=== PATIENT | female | born 1940 | race Caucasian/White ===

== ENCOUNTER 2018-07-30 13:43 | Inpatient (IN) | payer OTHER, MEDICAID ==
[2018-07-30] MEDS: SODIUM CHLORIDE 0.9% 1L BAG IV* (15:15)
[2018-07-30] MEDS: CEFEPIME 2GM/50 ML (PMX) 50 ML IVPB (15:16)
[2018-07-30] MEDS: ACETAMINOPHEN 500 MG TAB PO (15:16)
[2018-07-30 15:26] LABS: WHITE BLOOD COUNT 10.3 10^3/ul (4.8-10.8)
[2018-07-30 15:26] LABS: HEMOGLOBIN 13.2 g/dl (12.0-16.0); MEAN CORPUSCULAR HEMOGLOBIN 33.3 pg (29.0-33.0); MEAN CORPUSCULAR HGB CONC 33.8 g/dl (32.0-37.0); MEAN CORPUSCULAR VOLUME 98.5 fl (82.0-101.0); MEAN PLATELET VOLUME 10.6 fl (7.4-10.4); PLATELET COUNT 113 10^3/UL (140-415); RED BLOOD COUNT 3.96 10^6/ul (4.20-5.40); RED CELL DISTRIBUTION WIDTH 16.5 % (11.5-14.5)
[2018-07-30 15:38] LABS: POSITIVE DIFF @See below
[2018-07-30 15:39] LABS: ADD MAN DIFF? YES
[2018-07-30 15:42] LABS: INR 1.09; PROTIME 14.2 Sec (11.9-14.9); PT RATIO 1.1
[2018-07-30 15:46] LABS: ANION GAP 13 (8-16); BLOOD UREA NITROGEN 10 mg/dl (7-20); CALCIUM 8.9 mg/dl (8.4-10.2); CARBON DIOXIDE 22 mmol/L (21-31); CHLORIDE 104 mmol/L (97-110); CREATININE 0.69 mg/dl (0.44-1.00); GLUCOSE 130 mg/dl (70-220); POTASSIUM 3.8 mmol/L (3.5-5.1); SODIUM 135 mmol/L (135-144)
[2018-07-30 15:49] LABS: LACTIC ACID 2.9 mmol/L (0.5-2.0)
[2018-07-30 15:57] LABS: TROPONIN-I < 0.012 ng/ml (0.000-0.120)
[2018-07-30 16:27] LABS: ANISOCYTOSIS 1+ (0-0); BAND NEUTROPHILS #M 0.7 10^3/ul (0.0-0.6); BAND NEUTROPHILS % (M) 7 % (0-4); BASOPHIL #M 0.2 10^3/ul (0.0-0.0); BASOPHILS % (M) 2 % (0-2); GIANT THROMBO% (M) 5 % (0-0); LYMPHOCYTES #M 1.1 10^3/ul (0.8-2.9); LYMPHOCYTES % (M) 11 % (15-51); METAMYELOCYTES #M 0.1 10^3/ul (0.0-0.0); METAMYELOCYTES %M 1 % (0-0); MONOCYTE #M 0.5 10^3/ul (0.3-0.9); MONOCYTES % (M) 5 % (0-11); PLATELET ESTIMATE DECREASED; POIKILOCYTOSIS 1+ (0-0); POLYCHROMASIA 3+ (0-0); REACTIVE LYMPHOCYTES #M 0.3 10^3/ul (0.0-0.0); REACTIVE LYMPHOCYTES% (M) 3 % (0-0); SEG NEUT #M 7.4 10^3/ul (1.6-7.5); SEGMENTED NEUTROPHILS (M) % 71 % (39-77); SMUDGE%M 44 % (0-0)
[2018-07-30] MEDS: VANCOMYCIN 1 GM (PMX) 250 ML IVPB (16:33)
[2018-07-30] MEDS: KETOROLAC 15 MG INJ IV (17:05)
[2018-07-30 17:15] LABS: ADD UMIC YES; UR ASCORBIC ACID NEGATIVE (NEGATIVE); UR BILIRUBIN (Dip) NEGATIVE (NEGATIVE); UR BLOOD (Dip) NEGATIVE (NEGATIVE); UR CLARITY SLIGHTLY CLOUDY (CLEAR); UR COLOR YELLOW (YELLOW); UR GLUCOSE (Dip) NEGATIVE (NEGATIVE); UR KETONES (Dip) NEGATIVE (NEGATIVE); UR LEUKOCYTE ESTERASE (Dip) 2+ Leu/ul (NEGATIVE); UR NITRITE (Dip) POSITIVE (NEGATIVE); UR NONSQUAMOUS EPITHELIAL CELL 1 /HPF (NONE SEEN); UR RBC 2 /HPF (0-5); UR SPECIFIC GRAVITY (Dip) 1.013 (1.003-1.030); UR TOTAL PROTEIN (Dip) 1+ mg/dl (NEGATIVE); UR UROBILINOGEN (Dip) 1+ mg/dL (NEGATIVE); UR WBC 87 /HPF (0-5)
[2018-07-30] MEDS ORDERED: ONDANSETRON 4 MG INJ IV ×2 (18:00→19:30)
[2018-07-30] MEDS ORDERED: ACETAMINOPHEN 325 MG TAB PO (18:00)
[2018-07-30] MEDS ORDERED: GABAPENTIN 300 MG CAP PO (19:30)
[2018-07-30] MEDS ORDERED: NACL 0.9% 3 ML SYG IV (19:30)
[2018-07-30 20:14] LABS: LACTIC ACID 1.3 mmol/L (0.5-2.0)
[2018-07-30 22:12] LABS: LACTIC ACID 1.1 mmol/L (0.5-2.0)
[2018-07-31] MEDS: ACETAMINOPHEN 325 MG TAB PO ×3 (02:14→18:40)
[2018-07-31 05:12] LABS: ABNORMAL IP MESSAGE 1; HEMATOCRIT 32.8 % (37.0-47.0); HEMOGLOBIN 11.1 g/dl (12.0-16.0); MEAN CORPUSCULAR HEMOGLOBIN 32.7 pg (29.0-33.0); MEAN CORPUSCULAR HGB CONC 33.8 g/dl (32.0-37.0); MEAN CORPUSCULAR VOLUME 96.8 fl (82.0-101.0); MEAN PLATELET VOLUME 11.4 fl (7.4-10.4); PLATELET COUNT 92 10^3/UL (140-415); RED BLOOD COUNT 3.39 10^6/ul (4.20-5.40); RED CELL DISTRIBUTION WIDTH 16.5 % (11.5-14.5)
[2018-07-31 05:12] LABS: WHITE BLOOD COUNT 9.3 10^3/ul (4.8-10.8)
[2018-07-31 05:23] LABS: ALBUMIN 2.4 g/dl (3.3-4.9); ALBUMIN/GLOBULIN RATIO 0.75; ALKALINE PHOSPHATASE 174 IU/L (42-121); ANION GAP 9 (8-16); ASPARTATE AMINO TRANSFERASE 42 IU/L (15-46); BILIRUBIN,INDIRECT 0.3 mg/dl (0-1.1); BILIRUBIN,TOTAL 0.3 mg/dl (0.2-1.3); BLOOD UREA NITROGEN 8 mg/dl (7-20); CARBON DIOXIDE 21 mmol/L (21-31); CHLORIDE 111 mmol/L (97-110); CREATININE 0.59 mg/dl (0.44-1.00); GLUCOSE 104 mg/dl (70-220); MAGNESIUM 1.8 mg/dl (1.7-2.5); PHOSPHORUS 2.6 mg/dl (2.5-4.9); POTASSIUM 3.5 mmol/L (3.5-5.1); SODIUM 137 mmol/L (135-144); TOTAL PROTEIN 5.6 g/dl (6.1-8.1)
[2018-07-31 05:25] LABS: ADD MAN DIFF? YES; POSITIVE DIFF @See below
[2018-07-31] MEDS: PANTOPRAZOLE (EC) 40 MG TAB PO (05:51)
[2018-07-31] MEDS: LEVOTHYROXINE 50 MCG TAB PO (05:51)
[2018-07-31 07:21] LABS: ALANINE AMINOTRANSFERASE 38 IU/L (13-69)
[2018-07-31 07:28] LABS: ANISOCYTOSIS 2+ (0-0); BAND NEUTROPHILS #M 1.2 10^3/ul (0.0-0.6); BAND NEUTROPHILS % (M) 13 % (0-4); BASOPHILS % (M) 1 % (0-2); BURR CELLS 2+ (0-0); EOSINOPHILS % (M) 1 % (0-7); GIANT THROMBO% (M) 1 % (0-0); LYMPHOCYTES #M 0.7 10^3/ul (0.8-2.9); LYMPHOCYTES % (M) 8 % (15-51); MONOCYTE #M 1.3 10^3/ul (0.3-0.9); MONOCYTES % (M) 14 % (0-11); PLATELET ESTIMATE DECREASED; POIKILOCYTOSIS 2+ (0-0); POLYCHROMASIA 1+ (0-0); SEGMENTED NEUTROPHILS (M) % 63 % (39-77); SMUDGE%M 43 % (0-0); TARGET CELLS 1+ (0-0); TOXIC GRANULATION 1+ (0-0)
[2018-07-31] MEDS: LEVOFLOXACIN 750 MG TABLET PO (08:57)
[2018-07-31 09:21] LABS: HEMOGLOBIN A1C 5.8 % (0-5.9)
[2018-07-31] MEDS ORDERED: IBUPROFEN 400 MG TAB (20:54)
[2018-07-31] MEDS: SENNA TAB PO (20:57)
[2018-07-31] MEDS: IBUPROFEN 200 MG TAB PO (22:19)
[2018-08-01] MEDS: LEVOTHYROXINE 50 MCG TAB PO (05:22)
[2018-08-01] MEDS: PANTOPRAZOLE (EC) 40 MG TAB PO (05:22)
[2018-08-01] MEDS: LEVOFLOXACIN 750 MG TABLET PO (08:21)
[2018-08-01] MEDS: CEFEPIME 1GM/50 ML (PMX) 50 ML IVPB (20:21)
[2018-08-01] MEDS: SENNA TAB PO (20:21)
[2018-08-02] MEDS: LEVOTHYROXINE 50 MCG TAB PO (06:02)
[2018-08-02] MEDS: PANTOPRAZOLE (EC) 40 MG TAB PO (06:02)
[2018-08-02] MEDS: CEFEPIME 1GM/50 ML (PMX) 50 ML IVPB (08:28)
[2018-08-02 17:24] LABS: WHITE BLOOD COUNT 6.5 10^3/ul (4.8-10.8)
[2018-08-02 17:24] LABS: HEMATOCRIT 36.6 % (37.0-47.0); HEMOGLOBIN 12.7 g/dl (12.0-16.0); MEAN CORPUSCULAR HEMOGLOBIN 33.2 pg (29.0-33.0); MEAN CORPUSCULAR HGB CONC 34.7 g/dl (32.0-37.0); MEAN CORPUSCULAR VOLUME 95.6 fl (82.0-101.0); PLATELET COUNT 128 10^3/UL (140-415); RED BLOOD COUNT 3.83 10^6/ul (4.20-5.40); RED CELL DISTRIBUTION WIDTH 16.2 % (11.5-14.5)
[2018-08-02 17:28] LABS: ADD MAN DIFF? YES
[2018-08-02 17:52] LABS: ANION GAP 12 (8-16); BLOOD UREA NITROGEN 8 mg/dl (7-20); CALCIUM 8.2 mg/dl (8.4-10.2); CARBON DIOXIDE 23 mmol/L (21-31); CHLORIDE 105 mmol/L (97-110); CREATININE 0.65 mg/dl (0.44-1.00); GLUCOSE 101 mg/dl (70-220); POTASSIUM 3.9 mmol/L (3.5-5.1); SODIUM 136 mmol/L (135-144)
[2018-08-02 18:16] LABS: ANISOCYTOSIS 2+ (0-0); BAND NEUTROPHILS #M 0.3 10^3/ul (0.0-0.6); BAND NEUTROPHILS % (M) 5 % (0-4); BASOPHILS % (M) 1 % (0-2); EOSINOPHILS % (M) 3 % (0-7); LYMPHOCYTES #M 2.1 10^3/ul (0.8-2.9); LYMPHOCYTES % (M) 33 % (15-51); MONOCYTE #M 0.6 10^3/ul (0.3-0.9); MONOCYTES % (M) 10 % (0-11); PLATELET ESTIMATE DECREASED; REACTIVE LYMPHOCYTES #M 0.5 10^3/ul (0.0-0.0); REACTIVE LYMPHOCYTES% (M) 8 % (0-0); SEG NEUT #M 2.6 10^3/ul (1.6-7.5); SEGMENTED NEUTROPHILS (M) % 40 % (39-77); SMUDGE%M 32 % (0-0)
== END 2018-08-02 19:04 | disposition home or self-care (01) | DRG 872 ==
LOC: E/R 13:43 → PP2 18:01
DX: A41.51 Sepsis due to Escherichia coli [E. coli] (principal); N39.0 Urinary tract infection, site not specified; E03.9 Hypothyroidism, unspecified; K21.9 Gastro-esophageal reflux disease without esophagitis; M85.80 Other specified disorders of bone density and structure, unspecified site; G62.9 Polyneuropathy, unspecified; Z90.710 Acquired absence of both cervix and uterus
CPT/HCPCS: 36415; 71045; 80048; 80053; 81001; 83036; 83605; 83735; 84100; 84443; 84484; 85025; 85610; 85730; 87040; 87086; 93005; 96365; 96375; 99291-25